=== PATIENT | female | born 1955 | race Caucasian/White ===

== ENCOUNTER 2017-04-20 16:03 | Observation (INO) | payer OTHER ==
[~2017-04-20] VITALS: Ht 157.5 cm; Wt 78.1 kg
--- NOTE | 2017-04-20 17:12 | ED.ADGEN ---
Past History Additional Past Medical Histor: no coronary disease, heart catheter greater than 10 years ago Past Medical History Stress test at least several years ago Smoking: Non-smoker Alcohol Use: None Drug Use: None Adult General Chief Complaint Chief Complaint Chest pain HPI HPI Patient is a 61 year old male who presents with 2 days of constant left sided substernal chest pain; no radiation down the arm or up the neck; no shortness of breath; no leg pain or swelling. 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 Review of Systems Review of Systems Constitutional: Denies fever or chills [] Eyes: Denies change in visual acuity, redness, or eye pain [] HENT: Denies nasal congestion or sore throat [] Respiratory: Denies cough or shortness of breath [] Cardiovascular: No additional information not addressed in HPI [] GI: Denies abdominal pain, nausea, vomiting, bloody stools or diarrhea [] : Denies dysuria or hematuria [] Musculoskeletal: Denies back pain or joint pain [] Integument: Denies rash or skin lesions [] Neurologic: Denies headache, focal weakness or sensory changes [] Endocrine: Denies polyuria or polydipsia [] Current Medications Current Medications Current Medications Medications (Trade) Dose Ordered Sig/Nolberto Start Time Stop Time Status Last Admin Dose Admin Aspirin (Children'S Aspirin) 324 mg 1X ONCE 04/20/17 18:20 04/20/17 18:21 DC Nitroglycerin (Nitro-Bid Oint) 1 inch 1X ONCE 04/20/17 18:20 04/20/17 18:21 DC Allergies Allergies Allergies Coded Allergies Type Severity Reaction Last Updated Verified Sulfa (Sulfonamide Antibiotics) Allergy Unknown 04/20/17 Yes acetaminophen Allergy Unknown 04/20/17 Yes adhesive Allergy Unknown 04/20/17 Yes amoxicillin Allergy Unknown 04/20/17 Yes cetirizine Allergy Unknown 04/20/17 Yes cinnamon Allergy Unknown 04/20/17 Yes clavulanic acid Allergy Unknown 04/20/17 Yes corn Allergy Unknown 04/20/17 Yes cyclobenzaprine Allergy Unknown 04/20/17 Yes erythromycin base Allergy Unknown 04/20/17 Yes estradiol Allergy Unknown 04/20/17 Yes fexofenadine Allergy Unknown 04/20/17 Yes iodine Allergy Unknown 04/20/17 Yes levofloxacin Allergy Unknown 04/20/17 Yes metronidazole Allergy Unknown 04/20/17 Yes ospemifene Allergy Unknown 04/20/17 Yes oxycodone Allergy Unknown 04/20/17 Yes propoxyphene Allergy Unknown 04/20/17 Yes sumatriptan Allergy Unknown 04/20/17 Yes terbinafine Allergy Unknown 04/20/17 Yes tomato Allergy Unknown 04/20/17 Yes verapamil Allergy Unknown 04/20/17 Yes Uncoded Allergies Type Severity Reaction Last Updated Verified msg Allergy Unknown 04/20/17 tomato paste Allergy Unknown 04/20/17 Physical Exam Physical Exam Constitutional: Well developed, well nourished, no acute distress, non-toxic appearance. [] HENT: Normocephalic, atraumatic, bilateral external ears normal, oropharynx moist, no oral exudates, nose normal. [] Eyes: PERRLA, EOMI, conjunctiva normal, no discharge. [] Neck: Normal range of motion, no tenderness, supple, no stridor. [] Cardiovascular:Heart rate regular rhythm, no murmur [] Lungs & Thorax: Bilateral breath sounds clear to auscultation [] Abdomen: Bowel sounds normal, soft, no tenderness, no masses, no pulsatile masses. [] Skin: Warm, dry, no erythema, no rash. [] Back: No tenderness, no CVA tenderness. [] Extremities: No tenderness, no cyanosis, no clubbing, ROM intact, no edema. [] Neurologic: Alert and oriented X 3, normal motor function, normal sensory function, no focal deficits noted. [] Psychologic: Affect normal, judgement normal, mood normal. [] Current Patient Data Vital Signs Vital Signs Date Time Temp Pulse Resp B/P (MAP) Pulse Ox O2 Delivery O2 Flow Rate FiO2 04/20/17 17:46 80 20 124/64 (84) 98 04/20/17 16:03 98.0 Room Air Lab Results Laboratory Tests Test 04/20/17 17:50 White Blood Count 7.3 x10^3/uL (4.0-11.0) Red Blood Count 4.72 x10^6/uL (3.50-5.40) Hemoglobin 12.8 g/dL (12.0-15.5) Hematocrit 39.3 % (36.0-47.0) Mean Corpuscular Volume 83 fL (79-100) Mean Corpuscular Hemoglobin 27 pg (25-35) Mean Corpuscular Hemoglobin Concent 33 g/dL (31-37) Red Cell Distribution Width 14.3 % (11.5-14.5) Platelet Count 236 x10^3/uL (140-400) Neutrophils (%) (Auto) 66 % (31-73) Lymphocytes (%) (Auto) 25 % (24-48) Monocytes (%) (Auto) 7 % (0-9) Eosinophils (%) (Auto) 2 % (0-3) Basophils (%) (Auto) 1 % (0-3) Neutrophils # (Auto) 4.8 x10^3uL (1.8-7.7) Lymphocytes # (Auto) 1.8 x10^3/uL (1.0-4.8) Monocytes # (Auto) 0.5 x10^3/uL (0.0-1.1) Eosinophils # (Auto) 0.1 x10^3/uL (0.0-0.7) Basophils # (Auto) 0.0 x10^3/uL (0.0-0.2) Sodium Level 140 mmol/L (136-145) Potassium Level 3.7 mmol/L (3.5-5.1) Chloride Level 107 mmol/L (98-107) Carbon Dioxide Level 25 mmol/L (21-32) Anion Gap 8 (6-14) Blood Urea Nitrogen 13 mg/dL (7-20) Creatinine 0.9 mg/dL (0.6-1.0) Estimated GFR (Cockcroft-Gault) 63.9 BUN/Creatinine Ratio 14 (6-20) Glucose Level 92 mg/dL (70-99) Calcium Level 8.2 mg/dL (8.5-10.1) L Total Bilirubin 0.3 mg/dL (0.2-1.0) Aspartate Amino Transferase (AST) 21 U/L (15-37) Alanine Aminotransferase (ALT) 31 U/L (14-59) Alkaline Phosphatase 80 U/L (46-116) Troponin I Quantitative < 0.017 ng/mL (0-0.055) Total Protein 7.0 g/dL (6.4-8.2) Albumin 3.7 g/dL (3.4-5.0) Albumin/Globulin Ratio 1.1 (1.0-1.7) EKG EKG Normal sinus rhythm rate of 76 no STEMI QTC normal interpretation time of 1709 [ ] Radiology/Procedures Radiology/Procedures Chest x-ray no acute disease process interpretation by me at 1823 [] Course & Med Decision Making Course & Med Decision Making Pertinent Labs and Imaging studies reviewed. (See chart for details) Patient appears to be quite comfortable although she does complain of continuing pain. EKG/ chest x-ray was unremarkable to my: labs are pending. Plan will likely be to admit for rule out. Discussed case with Dr. Mayer she is agreeable to admit the patient for observation and rule out and possible cardiac stress test. [] Final Impression Final Impression Acute chest pain [] Problems: Dragon Disclaimer Dragon Disclaimer This electronic medical record was generated, in whole or in part, using a voice recognition dictation system. MEHRAN POLLACK MD Apr 20, 2017 17:12
--- NOTE | 2017-04-20 17:14 | EKG ---
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
[2017-04-20 18:10] LABS: BASO % 1 % (0-3); EOS # 0.1 x10^3/uL (0.0-0.7); EOS % 2 % (0-3); HEMATOCRIT 39.3 % (36.0-47.0); HEMOGLOBIN 12.8 g/dL (12.0-15.5); LYMPH # 1.8 x10^3/uL (1.0-4.8); LYMPH % 25 % (24-48); MEAN CORPUSCULAR HEMOGLOBIN 27 pg (25-35); MEAN CORPUSCULAR HGB CONC 33 g/dL (31-37); MEAN CORPUSCULAR VOLUME 83 fL (79-100); MONO # 0.5 x10^3/uL (0.0-1.1); MONO % 7 % (0-9); NEUT # 4.8 x10^3uL (1.8-7.7); NEUT % 66 % (31-73); PLATELET COUNT 236 x10^3/uL (140-400); RED BLOOD COUNT 4.72 x10^6/uL (3.50-5.40); RED CELL DISTRIBUTION WIDTH 14.3 % (11.5-14.5); WHITE BLOOD COUNT 7.3 x10^3/uL (4.0-11.0)
[2017-04-20] MEDS ORDERED: NITROGLYCERIN OINT 1 GM PACKET. TP ONE (18:20)
[2017-04-20] MEDS ORDERED: ASPIRIN 81 MG TAB.CHEW PO ONE (18:20)
[2017-04-20 18:22] LABS: ALBUMIN 3.7 g/dL (3.4-5.0); ALBUMIN/GLOBULIN RATIO 1.1 (1.0-1.7); CALCIUM 8.2 mg/dL (8.5-10.1); CREATININE 0.9 mg/dL (0.6-1.0); GFR 63.9; POTASSIUM 3.7 mmol/L (3.5-5.1); TOTAL BILIRUBIN 0.3 mg/dL (0.2-1.0)
[2017-04-20 19:30] VITALS: BP 135/84
[2017-04-20] MEDS ORDERED: DICLOFENAC SODIUM 1% TOPICAL GEL 100GM TUBE. TP PRN (21:00)
[2017-04-20] MEDS ORDERED: PROCHLORPERAZINE 5 MG TABLET. PO PRN (21:00)
[2017-04-20] MEDS ORDERED: ALCA3DRO OU (21:23)
[2017-04-20] MEDS ORDERED: TOPI50TA8 PO (21:23)
[2017-04-20] MEDS ORDERED: LOTE5DRO3 OU (21:23)
[2017-04-20] MEDS ORDERED: CYCL1DRO OU (21:26)
[2017-04-20] MEDS ORDERED: [UNRECOGNIZED DRUG - CODE] PO (21:26)
[2017-04-20] MEDS ORDERED: MELA3TAB2 PO (21:27)
[2017-04-20] MEDS ORDERED: FLUV80TA PO (21:27)
[2017-04-20] MEDS ORDERED: ACET-704 PO (21:28)
[2017-04-20] MEDS ORDERED: PROC5TAB34 PO (21:30)
[2017-04-20] MEDS ORDERED: IBAN150T PO (21:32)
[2017-04-20] MEDS ORDERED: CALC-30 PO (21:33)
[2017-04-20] MEDS ORDERED: DICL100G18 TP (21:46)
[2017-04-20] MEDS ORDERED: MAGN400C PO (21:51)
[2017-04-20] MEDS ORDERED: BIOT5000 PO (21:56)
[2017-04-20] MEDS ORDERED: MELATONIN 3 MG TABLET PO SCH (22:15)
[2017-04-20] MEDS ORDERED: TOPIRAMATE 100 MG TABLET. PO SCH (22:15)
[2017-04-20] MEDS: ACETAMINOPHEN/CODEINE 300/30MG TABLET PO PRN (22:19)
[2017-04-20] MEDS: cycloSPORINE 0.05% OPTH 1 DROP DROPERETTE OU SCH (22:20)
[2017-04-20 23:35] VITALS: BP 103/63
[2017-04-21 05:40] VITALS: BP 121/72
[2017-04-21] MEDS ORDERED: LEVOTHYROXINE 137 MCG TABLET PO SCH (06:00)
[2017-04-21 06:32] LABS: BASO % 1 % (0-3); EOS # 0.1 x10^3/uL (0.0-0.7); EOS % 2 % (0-3); HEMATOCRIT 34.8 % (36.0-47.0); HEMOGLOBIN 11.7 g/dL (12.0-15.5); LYMPH # 1.6 x10^3/uL (1.0-4.8); LYMPH % 28 % (24-48); MEAN CORPUSCULAR HEMOGLOBIN 28 pg (25-35); MEAN CORPUSCULAR HGB CONC 34 g/dL (31-37); MEAN CORPUSCULAR VOLUME 83 fL (79-100); MONO # 0.5 x10^3/uL (0.0-1.1); MONO % 9 % (0-9); NEUT # 3.6 x10^3uL (1.8-7.7); NEUT % 61 % (31-73); PLATELET COUNT 205 x10^3/uL (140-400); RED CELL DISTRIBUTION WIDTH 14.3 % (11.5-14.5); WHITE BLOOD COUNT 5.9 x10^3/uL (4.0-11.0)
[2017-04-21 06:44] LABS: ALBUMIN 3.1 g/dL (3.4-5.0); CALCIUM 7.9 mg/dL (8.5-10.1); CREATININE 0.8 mg/dL (0.6-1.0); GFR 73.2; MAGNESIUM 2.1 mg/dL (1.8-2.4); POTASSIUM 3.7 mmol/L (3.5-5.1); TOTAL BILIRUBIN 0.3 mg/dL (0.2-1.0); TOTAL PROTEIN 6.1 g/dL (6.4-8.2)
--- NOTE | 2017-04-21 08:06 | RAD ---
Portable chest, 04/20/2017: History: Chest pain Comparison is made to a study from 12/09/2009. The heart size and pulmonary vascularity are normal. No pulmonary infiltrates seen. There is no evidence of pleural fluid. IMPRESSION: No acute cardiopulmonary abnormality is detected.
[2017-04-21] MEDS ORDERED: MAGNESIUM OXIDE 400 MG TABLET PO SCH (09:00)
[2017-04-21] MEDS: cycloSPORINE 0.05% OPTH 1 DROP DROPERETTE OU SCH (09:14)
[2017-04-21] MEDS ORDERED: LIDO:MAALOX 1:1 20 ML SINGLE DOSE PO ONE (09:30)
[2017-04-21] MEDS ORDERED: PANTOPRAZOLE 40 MG TABLET. PO SCH (09:30)
[2017-04-21] MEDS: ACETAMINOPHEN/CODEINE 300/30MG TABLET PO PRN (11:12)
[2017-04-21 11:49] VITALS: BP 132/82
--- NOTE | 2017-04-21 13:28 | SSS ---
ADMIT DATE: 04/20/2017 DISCHARGE DIAGNOSES: Chest pain noncardiac, myocardial infarction ruled out, probable gastroesophageal reflux disease, hypothyroidism, chronic migraines, impaired glucose tolerance, and osteoarthritis. CONSULTANTS: [facility]. BRIEF HOSPITAL COURSE: This is a 61-year-old female complaining of some left-sided chest pain, which she thought might have been indigestion. She went to see a chiropractor to see if adjustment would help and it did not. She states she went to see Dr. Cross one week ago and was told that she may have had a heart attack. She has an appointment for a stress test on 05/03/2017 and an echo. OTHER PERTINENT CARDIAC HISTORY. She had a history of cardiac catheterization in 2003, which was evidently normal. OTHERS PAST MEDICAL HISTORY: Gallbladder disease, osteoarthritis, Tania's thyroiditis, and osteoporosis. ALLERGIES: Multiple allergies. Please see record. She states they are all true allergies causing rashes. MEDICATIONS: Reviewed and are available on the MAR. PAST SURGICAL HISTORY: Cholecystectomy, double knee replacement, bunionectomy, and total abdominal hysterectomy. REVIEW OF SYSTEMS: As per HPI. Also, positive for low-grade headache after getting nitroglycerin. SOCIAL HISTORY: The patient does work. Does not smoke. Occasional alcohol. OBJECTIVE: VITAL SIGNS: Blood pressure 132/82, pulse 72, respirations 18, and pulse ox 93% on room air. GENERAL: A 61-year-old, in no acute distress. HEENT: Her hearing is normal. Her pupils are equal, round, and react to light. Extraocular muscles were intact. Her nose is patent. Her throat was clear. NECK: Supple. There is no adenopathy. Thyroid is not enlarged. There are no carotid bruits. LUNGS: Clear to auscultation. CARDIOVASCULAR: Regular rhythm and rate. ABDOMEN: Soft and nontender. No masses palpated. EXTREMITIES: Without edema. NEUROLOGIC: She is intact. LABORATORY DATA: Normal CBC. Chemistry slightly low albumin of 3.1, but it was normal at 3.7 delusional. Troponins x 3 negative. She did have an EKG that has not been read. Read out is pending PLAN: Follow up with Cardiology. She has been going to work to move up stress test. She may take an [id number] Zantac and try that. ANASTASIYA STEPHENS DO DR: Sydnie JOB#: [id number] / [id number]
--- NOTE | 2017-04-21 13:32 | PDOC2 ---
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 She has a past medical history of hypercholesterolemia , negative cardiac catheterization in 2003, history of mitral valve prolapse. over the last several weeks she has been extremely tired and went in to see her primary care provider. An EKG was done that was suspicious for old inferior wall NH and she was referred over to Cardiology. She saw Dr. Bey who ordered a stress test that she was planning to have done later this month. 2 days ago the she started feeling chest discomfort that felt more like reflux problems. She states it is a pressure in the epigastric area and has been there consistently for 48 hours. It is not associated with any shortness of breath, nausea, vomiting or diaphoresis. activity does not make it better or worse. When she came into the emergency room last night she was given nitroglycerin and that did seem to make the pain improved. This morning the discomfort is gone but she can still feel a sensation in the epigastric area. She denies any palpitations, lower extremity swelling, PND or orthopnea. Allergies ANI AUGMENTIN BOTOX DARVOCET-N 100 ERYTHROMYCIN BASE FLAGYL FLEXERIL IMITREX IODINE LAMISIL LEVOFLOXACIN OSPHENA OXYCODONE OXYCONTIN PERCOCET SULFA (SULFONAMIDE ANTIBIOTICS) VAGIFEM VERAPAMIL ZYRTEC Adhesive Bandage 1"x10 yd bandages Severe Rash - generalized 01/25/2011 [place] Starch (corn starch topical) topical powder Severe Rash - generalized 01/25 Medications Alrex 0.2 % eye drops,suspensionInstill 1 drop(s) twice a day by ophthalmic route for 90 days. biotintwice daily Boniva 150 mg tabletTake 1 tablet(s) every month by oral route for 90 days. Botox 100 unit injectionas directed Calcium 600 + D(3)twice daily Compazine 5 mg tabletTake 1 tablet(s) every 4 hours by oral route as needed. Lastacaft 0.25 % eye dropsInstill 1 drop(s) twice a day by ophthalmic route as needed for 25 days. Lescol XL 80 mg tablet,extended releaseTake 1 tablet(s) every day by oral route. Levo-T 137 mcg tabletTake 1 tablet(s) every day by oral route for 90 days. magnesium 250 mg tabletTake 1 tablet(s) every day by oral route. Probioticonce daily Restasis 0.05 % eye drops in a dropperetteInstill 1 drop(s) twice a day by ophthalmic route for 90 days. topiramate 100 mg tabletTake 1.5 tablet(s) every day by oral route for 90 days. Vitamin B-12 50 mcg lozengesTake 1 lozenge(s) every day by oral route. Voltaren 1 % topical gelApply 1 g twice a day by topical route for 7 days. 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 Constitutional: General Appearance: well-nourished, well-developed, and appears stated age. Level of Distress: comfortable. Neuro/Psych: Motor: normal strength and tone. Gait: normal gait. Mental Status: alert and normal affect. Orientation: oriented to time, place, and person. Insight: good judgment. Eyes: Lids and Conjunctivae: no pallor, xanthelasma, or arcus senilis and non- injected and anicteric. ENMT: Lips, Teeth, and Gums: normal dentition. Ears: no lesions on external ear. Nose: no lesions on external nose or sinus tenderness. Oropharynx: no cyanosis or pallor; Mucous membranes are moist. Neck: Neck: supple, FROM, trachea midline, and no masses. Carotid Arteries: no bruits or thrills and bilateral normal upstroke. Jugular Veins: normal jugular venous pressure and Kussmaul's sign absent. Cervical Lymph Nodes: non tender or not enlarged. Thyroid: not enlarged, non tender, or no nodules. Lungs: Respiratory Effort: unlabored. Chest Exam: no thoracic deformity or chest wall tenderness and normal curvature. Percussion: resonant. Auscultation: no wheezing, rales, or rhonchi and clear. Cardiovascular: Precordial Exam: no heaves or precordial thrills and non displaced focal PMI. Rate And Rhythm: regular. Heart Sounds: no rub, gallop, or click and normal S1 and physiologically split S2. Systolic Murmur: grade 2/6 at the apex not radiating soft holosystolic. Diastolic Murmur: not heard. Extremities: no cyanosis, varicosities, or peripheral signs of emboli and BTK edema bilateral + 2. Peripheral Pulses: Pulses: full and equal in all extremities with no bruit except if noted. Posterior Tibialis Pulse normal. Dorsalis Pedis Pulse: normal. Abdomen: Inspection and Palpation: non distended or tender, no bruit or masses, and soft and normal aorta. Liver: non tender or no hepatomegaly. Spleen: non tender or no splenomegaly. Musculoskeletal: Inspection: no joint tenderness or swelling and no erythema. Skin: Inspection and Palpation: warm and dry. Nails: no clubbing. Procedure: Echocardiogram (07/28/2010): Normal left ventricular chamber size, wall thickness and systolic function. No evidence of mitral valve prolapse. EK04/13/2017: Sinus rhythm, nonspecific ST segment changes, inferior and lateral Q-waves Cardiac catheterization: January 2004 ([place]): Reportedly normal Assessment / Plan 1. Chest pain -her 1st 2 sets of enzymes have both come back negative. If her 3rd set comes back negative she may discharge home and have an outpatient stress test at our office tomorrow. We will also try GI cocktail and Protonix to see if the sensation that she is having right now will sophia. 2. Electrocardiogram abnormal - Plan for nuclear stress test 3. Obstructive sleep apnea syndrome - she will not wear a CPAP. She says this is positional 4. Family history of ischemic heart disease - her mother had "silent" heart attack in her early 60s, subsequently had CABG at 72. Current Medications Current Medications Aspirin (Children'S Aspirin) 324 mg 1X ONCE PO Last administered on 04/20/17 18:20; Start 04/20/17 at 18:20; Stop 04/20/17 at 18:21; Status DC Nitroglycerin (Nitro-Bid Oint) 1 inch 1X ONCE TP Last administered on 18:20; Start 04/20/17 at 18:20; Stop 04/20/17 at 18:21; Status DC Acetaminophen/ Codeine Phosphate (Tylenol #3) 1 tab PRN Q4HRS PRN PO HEADACHE Last administered on 04/21/17 11:12; Start 04/20/17 at 21:00 Cyclosporine (Restasis) 1 drop BID OU Last administered on 04/21/17 09:14; Start 04/20/17 at 21:00 Diclofenac Sodium (Voltaren) 1 nadiya PRN QID PRN TP PAIN; Start 04/20/17 at 21:00 Levothyroxine Sodium (Synthroid) 137 mcg DAILY06 PO Last administered on 05:34; Start 04/21/17 at 06:00 Prochlorperazine Maleate (Compazine) 5 mg PRN Q6HRS PRN PO NAUSEA/VOMITING; Start 04/20/17 at 21:00 Magnesium Oxide (Magnesium Oxide) 400 mg BID PO Last administered on 04/21/17 09:13; Start 04/21/17 at 09:00 Melatonin 6 mg QHS PO Last administered on 04/20/17 22:19; Start 04/20/17 at 22:15 Topiramate (Topamax) 150 mg QHS PO Last administered on 04/20/17 22:19; Start 04/20/17 at 22:15 Multi-Ingredient Mouthwash/Gargle (Gi Cocktail) 20 ml 1X ONCE PO Last administered on 04/21/17 09:53; Start 04/21/17 at 09:30; Stop 04/21/17 at 09:31 ; Status DC Pantoprazole Sodium (Protonix) 40 mg DAILYAC PO Last administered on 04/21/17 09:53; Start 04/21/17 at 09:30 Active Scripts Active Reported Biotin 5,000 Mcg Tab.rapdis 5,000 Mcg PO BID LAST DOSE GIVEN: DATE: TIME: NEXT DOSE DUE: DATE: TIME: Magnesium (Magnesium Oxide) 400 Mg Capsule 400 Mg PO BID LAST DOSE GIVEN: DATE: TIME: NEXT DOSE DUE: DATE: TIME: Voltaren (Diclofenac Sodium) 100 Gm Gel..gram. 1 Nadiya TP PRN QID PRN LAST DOSE GIVEN: DATE: TIME: NEXT DOSE DUE: DATE: TIME: Calcium 500 + Vit D 400 Tablet (Calcium Carbonate/Vitamin D3) 1 Each Tablet 1 Tab PO BID LAST DOSE GIVEN: DATE: TIME: NEXT DOSE DUE: DATE: TIME: Boniva (Ibandronate Sodium) 150 Mg Tablet 150 Mg PO [id number] LAST DOSE GIVEN: DATE: TIME: NEXT DOSE DUE: DATE: TIME: Compazine (Prochlorperazine Maleate) 5 Mg Tablet 5 Mg PO PRN Q6HRS PRN LAST DOSE GIVEN: DATE: TIME: NEXT DOSE DUE: DATE: TIME: Tylenol With Codeine #3 Tablet (Acetaminophen With Codeine) 1 Each Tablet 1 Tab PO PRN Q4HRS PRN LAST DOSE GIVEN: DATE: TIME: NEXT DOSE DUE: DATE: TIME: Melatonin 3 Mg Tablet 5 Mg PO QHS LAST DOSE GIVEN: DATE: TIME: NEXT DOSE DUE: DATE: TIME: Lescol Xl (Fluvastatin Sodium) 80 Mg Tab.er.24h 80 Mg PO HS LAST DOSE GIVEN: DATE: TIME: NEXT DOSE DUE: DATE: TIME: Levo-T (Levothyroxine Sodium) 137 Mcg Tablet 137 Mcg PO DAILY06 LAST DOSE GIVEN: DATE: TIME: NEXT DOSE DUE: DATE: TIME: Restasis (Cyclosporine) 1 Each Droperette 1 Drop OU BID LAST DOSE GIVEN: DATE: TIME: NEXT DOSE DUE: DATE: TIME: Alrex (Loteprednol Etabonate) 5 Ml Drops.susp 1 Drop OU PRN Q4-6HRS PRN LAST DOSE GIVEN: DATE: TIME: NEXT DOSE DUE: DATE: TIME: Topiramate 50 Mg Tablet 150 Mg PO HS LAST DOSE GIVEN: DATE: TIME: NEXT DOSE DUE: DATE: TIME: Lastacaft (Alcaftadine) 3 Ml Drops 1 Drop OU PRN Q4-6HRS PRN LAST DOSE GIVEN: DATE: TIME: NEXT DOSE DUE: DATE: TIME: Allergies: Coded Allergies: Sulfa (Sulfonamide Antibiotics) (Verified Allergy, Intermediate, 04/21/17) acetaminophen (Verified Allergy, Intermediate, 04/21/17) adhesive (Verified Allergy, Intermediate, 04/21/17) amoxicillin (Verified Allergy, Intermediate, 04/21/17) cetirizine (Verified Allergy, Intermediate, 04/21/17) cinnamon (Verified Allergy, Intermediate, 04/21/17) clavulanic acid (Verified Allergy, Intermediate, 04/21/17) corn (Verified Allergy, Intermediate, 04/21/17) cyclobenzaprine (Verified Allergy, Intermediate, 04/21/17) erythromycin base (Verified Allergy, Intermediate, 04/21/17) estradiol (Verified Allergy, Intermediate, 04/21/17) fexofenadine (Verified Allergy, Intermediate, 04/21/17) iodine (Verified Allergy, Intermediate, 04/21/17) levofloxacin (Verified Allergy, Intermediate, 04/21/17) metronidazole (Verified Allergy, Intermediate, 04/21/17) ospemifene (Verified Allergy, Intermediate, 04/21/17) oxycodone (Verified Allergy, Intermediate, 04/21/17) propoxyphene (Verified Allergy, Intermediate, 04/21/17) sumatriptan (Verified Allergy, Intermediate, 04/21/17) terbinafine (Verified Allergy, Intermediate, 04/21/17) tomato (Verified Allergy, Intermediate, 04/21/17) verapamil (Verified Allergy, Intermediate, 04/21/17) Uncoded Allergies: msg (Allergy, Unknown, 04/20/17) tomato paste (Allergy, Unknown, 04/20/17) VITALS Vital Signs Date Time Temp Pulse Resp B/P (MAP) Pulse Ox O2 Delivery O2 Flow Rate FiO2 04/21/17 11:49 98.1 72 18 132/82 (99) 93 Room Air Labs Laboratory Tests Test 04/20/17 17:50 04/21/17 01:00 04/21/17 05:51 04/21/17 11:51 White Blood Count 7.3 x10^3/uL (4.0-11.0) 5.9 x10^3/uL (4.0-11.0) Red Blood Count 4.72 x10^6/uL (3.50-5.40) 4.20 x10^6/uL (3.50-5.40) Hemoglobin 12.8 g/dL (12.0-15.5) 11.7 g/dL (12.0-15.5) Hematocrit 39.3 % (36.0-47.0) 34.8 % (36.0-47.0) Mean Corpuscular Volume 83 fL (79-100) 83 fL (79-100) Mean Corpuscular Hemoglobin 27 pg (25-35) 28 pg (25-35) Mean Corpuscular Hemoglobin Concent 33 g/dL (31-37) 34 g/dL (31-37) Red Cell Distribution Width 14.3 % (11.5-14.5) 14.3 % (11.5-14.5) Platelet Count 236 x10^3/uL (140-400) 205 x10^3/uL (140-400) Neutrophils (%) (Auto) 66 % (31-73) 61 % (31-73) Lymphocytes (%) (Auto) 25 % (24-48) 28 % (24-48) Monocytes (%) (Auto) 7 % (0-9) 9 % (0-9) Eosinophils (%) (Auto) 2 % (0-3) 2 % (0-3) Basophils (%) (Auto) 1 % (0-3) 1 % (0-3) Neutrophils # (Auto) 4.8 x10^3uL (1.8-7.7) 3.6 x10^3uL (1.8-7.7) Lymphocytes # (Auto) 1.8 x10^3/uL (1.0-4.8) 1.6 x10^3/uL (1.0-4.8) Monocytes # (Auto) 0.5 x10^3/uL (0.0-1.1) 0.5 x10^3/uL (0.0-1.1) Eosinophils # (Auto) 0.1 x10^3/uL (0.0-0.7) 0.1 x10^3/uL (0.0-0.7) Basophils # (Auto) 0.0 x10^3/uL (0.0-0.2) 0.0 x10^3/uL (0.0-0.2) Sodium Level 140 mmol/L (136-145) 139 mmol/L (136-145) Potassium Level 3.7 mmol/L (3.5-5.1) 3.7 mmol/L (3.5-5.1) Chloride Level 107 mmol/L (98-107) 108 mmol/L (98-107) Carbon Dioxide Level 25 mmol/L (21-32) 23 mmol/L (21-32) Anion Gap 8 (6-14) 8 (6-14) Blood Urea Nitrogen 13 mg/dL (7-20) 14 mg/dL (7-20) Creatinine 0.9 mg/dL (0.6-1.0) 0.8 mg/dL (0.6-1.0) Estimated GFR (Cockcroft-Gault) 63.9 73.2 BUN/Creatinine Ratio 14 (6-20) 18 (6-20) Glucose Level 92 mg/dL (70-99) 110 mg/dL (70-99) Calcium Level 8.2 mg/dL (8.5-10.1) 7.9 mg/dL (8.5-10.1) Total Bilirubin 0.3 mg/dL (0.2-1.0) 0.3 mg/dL (0.2-1.0) Aspartate Amino Transf (AST/SGOT) 21 U/L (15-37) 17 U/L (15-37) Alanine Aminotransferase (ALT/SGPT) 31 U/L (14-59) 21 U/L (14-59) Alkaline Phosphatase 80 U/L (46-116) 69 U/L (46-116) Troponin I Quantitative < 0.017 ng/mL (0-0.055) < 0.017 ng/mL (0-0.055) < 0.017 ng/mL (0-0.055) < 0.017 ng/mL (0-0.055) Total Protein 7.0 g/dL (6.4-8.2) 6.1 g/dL (6.4-8.2) Albumin 3.7 g/dL (3.4-5.0) 3.1 g/dL (3.4-5.0) Albumin/Globulin Ratio 1.1 (1.0-1.7) 1.0 (1.0-1.7) Creatine Kinase 58 U/L (26-192) 53 U/L (26-192) Creatine Kinase MB (Mass) 1.6 ng/mL (0.0-3.6) 1.3 ng/mL (0.0-3.6) Creatine Kinase MB Relative Index 2.8 % (0-4) 2.5 % (0-4) Magnesium Level 2.1 mg/dL (1.8-2.4) KALLI HOWARD Jr, MD 04/22/17 0627: CONSULT Allergies: Coded Allergies: Sulfa (Sulfonamide Antibiotics) (Verified Allergy, Intermediate, 04/21/17) acetaminophen (Verified Allergy, Intermediate, 04/21/17) adhesive (Verified Allergy, Intermediate, 04/21/17) amoxicillin (Verified Allergy, Intermediate, 04/21/17) cetirizine (Verified Allergy, Intermediate, 04/21/17) cinnamon (Verified Allergy, Intermediate, 04/21/17) clavulanic acid (Verified Allergy, Intermediate, 04/21/17) corn (Verified Allergy, Intermediate, 04/21/17) cyclobenzaprine (Verified Allergy, Intermediate, 04/21/17) erythromycin base (Verified Allergy, Intermediate, 04/21/17) estradiol (Verified Allergy, Intermediate, 04/21/17) fexofenadine (Verified Allergy, Intermediate, 04/21/17) iodine (Verified Allergy, Intermediate, 04/21/17) levofloxacin (Verified Allergy, Intermediate, 04/21/17) metronidazole (Verified Allergy, Intermediate, 04/21/17) ospemifene (Verified Allergy, Intermediate, 04/21/17) oxycodone (Verified Allergy, Intermediate, 04/21/17) propoxyphene (Verified Allergy, Intermediate, 04/21/17) sumatriptan (Verified Allergy, Intermediate, 04/21/17) terbinafine (Verified Allergy, Intermediate, 04/21/17) tomato (Verified Allergy, Intermediate, 04/21/17) verapamil (Verified Allergy, Intermediate, 04/21/17) Uncoded Allergies: msg (Allergy, Unknown, 04/20/17) tomato paste (Allergy, Unknown, 04/20/17) Assessment/Plan The patient was seen by Jose Garcia APRN and I have reviewed her findings and plan and agree with above. Due to staffing constraints, we did not have an attending available on this day to see the patient. Problems: JOSE GARCIA APRN Apr 21, 2017 13:32 KALLI HOWARD Jr, MD Apr 22, 2017 06:27
== END 2017-04-21 15:00 | disposition home or self-care (01) ==
LOC: ER 16:03 → 1 SOUTH 18:35
PROVIDERS: ADMIT Family Medicine; ATTEND Family Medicine
DX: R07.89 Other chest pain (principal); G43.909 Migraine, unspecified, not intractable, without status migrainosus; R73.02 Impaired glucose tolerance (oral); M19.90 Unspecified osteoarthritis, unspecified site; E06.3 Autoimmune thyroiditis; M81.0 Age-related osteoporosis without current pathological fracture; E78.00 Pure hypercholesterolemia, unspecified; G47.33 Obstructive sleep apnea (adult) (pediatric); I34.1 Nonrheumatic mitral (valve) prolapse; I25.2 Old myocardial infarction; Z90.710 Acquired absence of both cervix and uterus; Z96.659 Presence of unspecified artificial knee joint; Z80.6 Family history of leukemia; Z80.49 Family history of malignant neoplasm of other genital organs; Z82.49 Family history of ischemic heart disease and other diseases of the circulatory system
CPT/HCPCS: 36415; 71010; 80053; 82553; 83735; 84484; 85027; 93005; 99285; G0378; G0379

== ENCOUNTER → 2018-08-07 | Outpatient (CLI) | payer OTHER ==
[~2018-08-07] MED LIST: ACET-704 PO; ALCA3DRO OU; BIOT5000 PO; CALC-30 PO; CYCL1DRO OU; DICL100G18 TP; FLUV80TA PO; IBAN150T PO; LOTE5DRO3 OU; MAGN400C PO; MELA3TAB2 PO; PROC5TAB34 PO; TOPI50TA8 PO; [UNRECOGNIZED DRUG - CODE] PO
--- NOTE | 2018-08-07 09:26 | RAD ---
EXAM: Pelvic sonogram. HISTORY: Right adnexal pain. TECHNIQUE: Transabdominal and transvaginal sonographic imaging of the pelvis was performed. COMPARISON: None. FINDINGS: The uterus is surgically absent. The ovaries are obscured. There is no pelvic free fluid. No adnexal mass or cyst is seen. The bladder is unremarkable. IMPRESSION: 1. Surgically absent uterus. 2. Nonvisualization of the ovaries. These may also be surgically absent or obscured due to bowel gas. No adnexal lesion is seen. Electronically signed by: Maci Barnes MD (08/07/2018 9:23 AM) [place] [id number]
--- NOTE | 2018-08-07 13:56 | RAD ---
EXAM: Dual energy x-ray absorptiometry (DEXA). HISTORY: Postmenopausal female presents for osteoporosis screening. COMPARISON: 04/14/2010. TECHNIQUE: Dual energy x-ray absorptiometry of the lumbar spine and right hip was performed. Calculation of bone mineral density based on standard deviations above or below the expected young adult normal value (T-score) was completed. FINDINGS: The average bone mineral density in the 1st through 4th lumbar vertebrae is 0.936 g/cmxcm, corresponding with a T-score of -2.0. There has been a 0.4% decrease in density of the lumbar spine compared to the prior study dated 04/14/2010. The average total bone mineral density in the right hip is 0.756 g/cmxcm, corresponding with a T-score of -1.6. There has been a 6.8% increase in density of the right hip compared to the prior study dated 04/14/2010. IMPRESSION: Osteopenia measured at the lumbar spine and right hip. Note: Definitions established by the World Health Organization: 1. Normal: T-score is -1.0 or above. 2. Osteopenia: T-score is between -1.0 and -2.5 . 3. Osteoporosis: T-score is -2.5 or below. Electronically signed by: Maci Barnes MD (08/07/2018 1:52 PM) [place] [id number]
== END | disposition home or self-care (01) ==
LOC: US 07:46
PROVIDERS: ATTEND Family Medicine
DX: M85.89 Other specified disorders of bone density and structure, multiple sites (principal); Z90.710 Acquired absence of both cervix and uterus
CPT/HCPCS: 76830; 76856; 77080